=== PATIENT | male | born 1990 | race Caucasian/White ===

== ENCOUNTER 2019-04-05 16:52 | Emergency (ER) | payer MEDICAID ==
[~2019-04-05] VITALS: Ht 172.7 cm; Wt 67.1 kg
[2019-04-05 16:56] VITALS: BP_SYST 125
--- NOTE | 2019-04-05 17:00 | NUR ---
Patient to ER bed 8 to gown for evaluation. Side rails up. Report given to Janine CERON.
--- NOTE | 2019-04-05 17:02 | NUR ---
Patient arrived in the ED with his , c/o depression for a year. Denied any SI/HI. Patient's child a year ago and he's still depressed about it that it's affecting his job. A&O x4, VS WNL, denied any c/p, sob, or headache. No signs and symptoms of respiratory distress. Patient is speaking in full sentences. at bedside.
--- NOTE | 2019-04-05 17:03 | NUR ---
ER at bedside examining patient.
--- NOTE | 2019-04-05 17:06 | NUR ---
Patient stated that he use recreational drugs sometimes, last use of Methadone was 3 days ago. Last alcoholic drink was 2 days ago. Notified .
--- NOTE | 2019-04-05 17:10 | NUR ---
eeg technologist at bedside to draw some blood specimen. Patient tolerated the procedure well.
--- NOTE | 2019-04-05 17:20 | NUR ---
Urine specimen dropped off at the lab.
[2019-04-05 17:30] LABS: BASOPHILS % (AUTO) 0.6 % (0.0-2.0); EOSINOPHILS # (AUTO) 0.2 K/uL (0.0-0.4); EOSINOPHILS % (AUTO) 2.2 % (0.0-4.0); HEMATOCRIT 50.2 % (36-54); HEMOGLOBIN 17.4 g/dL (14.0-18.0); LYMPHOCYTES # (AUTO) 2.6 K/uL (1.0-5.5); MEAN CORPUSCULAR HEMOGLOBIN 30 pg (27-31); MEAN CORPUSCULAR HGB CONC 35 % (32-36); MEAN CORPUSCULAR VOLUME 87 fL (79.0-98.0); MONOCYTES # (AUTO) 0.7 K/uL (0.0-1.0); MONOCYTES % (AUTO) 9.9 % (1.7-9.3); NEUTROPHILS # (AUTO) 3.6 K/uL (1.8-7.7); NEUTROPHILS % (AUTO) 50.3 % (40.0-70.0); PLATELET COUNT (AUTO) 331 K/uL (130-430); RED BLOOD CELL COUNT(AUTO) 5.75 MIL/uL (4.2-6.2); RED CELL DISTRIBUTION WIDTH 13.4 % (9.0-15.0); WHITE BLOOD COUNT (AUTO) 7.1 K/uL (4.8-10.8)
[2019-04-05 17:45] LABS: BILIRUBIN,URINE NEGATIVE (NEGATIVE); BLOOD, URINE NEGATIVE (NEGATIVE); CLARITY/URINE CLEAR (CLEAR); COLOR,URINE YELLOW (YELLOW); GLUCOSE,URINE NEGATIVE (NEGATIVE); KETONES,URINE NEGATIVE (NEGATIVE); LEUKOCYTE ESTERASE ,URINE NEGATIVE (NEGATIVE); NITRITE, URINE NEGATIVE (NEGATIVE); PH,URINE 5.5 (5.0-8.0); PROTEIN URINE NEGATIVE (NEGATIVE); UROBILINOGEN,URINE 0.2 (0.2-1.0)
--- NOTE | 2019-04-05 17:56 | NUR ---
Patient is sitting up in bed. No signs and symptoms of respiratory distress. Alert and oriented x4. Notified that lab results are still pending, patient verbalized understanding. at bedside.
[2019-04-05 17:57] LABS: ANION GAP 6 (5-15); CALCIUM 9.6 mg/dL (8.4-11.0); CHLORIDE 100 mmol/L (98-107); CREATININE 0.92 mg/dL (0.55-1.30); GLUCOSE 79 mg/dL (70-99); POTASSIUM 4.5 mmol/L (3.5-5.1); SODIUM SERUM 136 mmol/L (136-145); UREA NITROGEN, BLOOD 14 mg/dL (8-21)
[2019-04-05 18:01] LABS: ACETAMINOPHEN < 1 ug/mL (1-30); ALCOHOL, BLOOD < 3 mg/dL (<10); GFR AFRICAN AMERICAN 128 mL/min (>90)
--- NOTE | 2019-04-05 18:10 | NUR ---
Patient stated that he does not want to be admitted at the [facility], he just wants a prescription for a medication that can help him feel better. He stated he went to his PCP and was told to come to ED for treatment. Notified
--- NOTE | 2019-04-05 18:16 | NUR ---
Informed the patient that we are still waiting for the lab results.
[2019-04-05 18:19] LABS: BARBITURATE, URINE NEGATIVE (NEG <=200); BENZODIAZEPINE, URINE POSITIVE (NEG <=150); CANNABINOID, URINE POSITIVE (NEG <=50); COCAINE, URINE POSITIVE (NEG <=150); METHAMPHETAMINES SCREEN,URINE POSITIVE (NEG <=500); OPIATE, URINE NEGATIVE (NEG <=100); PHENCYCLIDINE SCREEN,URINE NEGATIVE (NEG <=25); UR TRICYCLIC ANTIDEPRESSANTS NEGATIVE (NEG <=300); URINE AMPHETAMINE POSITIVE (NEG <=500); URINE METHADONE NEGATIVE (NEG <=200); URINE OXYCODONE SCREEN NEGATIVE (NEG <=100); URINE PROPOXYPHENE SCREEN NEGATIVE (NEG <=300)
--- NOTE | 2019-04-05 18:19 | NUR ---
ER at bedside explaining to the patient what the next step will be.
--- NOTE | 2019-04-05 19:19 | NUR ---
Pt states he never had any suicidal thoughts, pt reports "I do not want to kill myself".
--- NOTE | 2019-04-05 19:25 | NUR ---
Suicidal Severity Risk Scale completed with the patient. at bedside.
--- NOTE | 2019-04-05 19:45 | NUR ---
Dr. Sena bedside for Pt eval
--- NOTE | 2019-04-05 20:31 | NUR ---
Pt resting at this time, cooperative with staff, at bedside
--- NOTE | 2019-04-05 20:58 | NUR ---
Dr Sena at bedside speaking to patient.
--- NOTE | 2019-04-05 21:41 | NUR ---
Patient is resting in bed with the at bedside, will continue to monitor.
--- NOTE | 2019-04-06 00:50 | NUR ---
PET team is here to evaluate pt.
--- NOTE | 2019-04-06 02:12 | NUR ---
PET Team, Gisela, cleared patient. Patient pending discharge from MD.
[2019-04-06 03:00] VITALS: BP_SYST 122
--- NOTE | 2019-04-06 03:00 | NUR ---
Patient given written and verbal discharge instructions and verbalizes understanding. ER MD discussed with patient the results and treatment provided. Patient in stable condition. ID arm band removed. No Iv. Pt Cleared by PET before DC. PET team gave patient approved resources. No RX given. Patient educated on resources avail to him from community and state services. Opportunity for questions provided and answered. Medication side effect fact sheet provided.
== END 2019-04-06 03:00 | disposition home or self-care (01) ==
LOC: SED 16:52
DX: F32.9 Major depressive disorder, single episode, unspecified (principal); R45.851 Suicidal ideations
CPT/HCPCS: 36415; 80048; 80307; 81003; 85025; 99284; G0480; G0481; G0482